=== PATIENT | male | born 1970 | race Caucasian/White ===

== ENCOUNTER 2022-11-18 01:42 | Day surgery (SDC) | payer OTHER, SELFPAY ==
[2022-11-07 15:51] VITALS: BMI 35.1
--- NOTE | 2022-11-17 14:19 | P.HP_ITS ---
History of Present Illness History of Present Illness Consent: Risks, benefits, and alternatives have been discussed and questions answered. Patient agrees to proceed with procedure. Chief complaint: GERD, neoplasm screening Narrative: Marilyn Granados is a 52 year old male referred for investigation of persistent reflux symptoms. He has been taking esomeprazole 20 mg daily. In the past he had been on prescription medication for a few years which she discontinued when symptoms improved after losing weight. He has never had an EGD. He is also referred for colon cancer screening because of his age. Review of Systems Review of Systems: All systems reviewed & are unremarkable except as noted in HPI and below [facility] Social History Social History Smoking packs per day: 1 Smoking cigarettes per day: 20.0 Years smoked: 15 Smoking pack-years: 15.00 Smoking status: Former smoker Tobacco type: smokeless tobacco Smokeless tobacco user: chewing tobacco Alcohol intake: current Drinks per week: 2 Alcohol use details: on occasion Substance use: never Substance use type: does not use Living arrangements: with family Spiritual care concerns: No Meds Home Medications and Allergies Home Medications Medication Instructions Recorded Confirmed Type esomeprazole magnesium 20 mg 20 mg PO DAILY 09/30/21 11/18/22 History capsule,delayed release (Nexium) rosuvastatin 40 mg tablet 40 mg PO DAILY 09/30/21 11/18/22 History Allergies Allergy/AdvReac Type Severity Reaction Status Date / Time No Known Allergies Allergy Verified 11/18/22 08:59 Exam Const: General: alert Orientation/consciousness: patient oriented x3 Resp: Auscultation: clear to auscultation bilaterally Cardio: Rhythm: regular rhythm GI: GI Palp: Yes Soft to palpation and No Tenderness to palpation present (GI) Neuro: General: patient oriented x3 Assessment and Plan Assessment and plan (1) GERD (gastroesophageal reflux disease): Code(s): K21.9 - Gastro-esophageal reflux disease without esophagitis Status: Acute Assessment and Plan: EGD with possible biopsy or dilatation or cautery. (2) Colon cancer screening: Code(s): Z12.11 - Encounter for screening for malignant neoplasm of colon Status: Acute Assessment and Plan: Colonoscopy with possible biopsy or polypectomy or cautery or injection of substances.
[2022-11-18 09:05] VITALS: BP 113/81; PULSE 69; RESP 18; TEMP 35.9; O2SAT 98
--- NOTE | 2022-11-18 09:12 | WPDANESEPPF ---
Anes - Initial Pre Proc Eval Procedure: Operation Date: 11/18/22 10:00 Proposed Procedures p Esophagogastroduodenoscopy & Screening Colonoscopy - Campos Callejas MD Date/Time: 11/18/22 09:12 Surgeon: Campos Callejas MD Pre Op Diagnosis: GERD, neoplasm screening Patient Data Age: 52 Gender: M Height: 1.78 m Weight: 112.3 kg Last Vital Signs Temp 96.7 F L 11/18/22 09:05 Pulse 69 11/18/22 09:05 Resp 18 11/18/22 09:05 BP 113/81 11/18/22 09:05 Pulse Ox 98 11/18/22 09:05 O2 Del Method Room Air 11/18/22 09:05 Allergies Allergy/AdvReac Type Severity Reaction Status Date / Time No Known Allergies Allergy Verified 11/18/22 08:59 Home Medications Medication Instructions Recorded Confirmed Type esomeprazole magnesium 20 mg 20 mg PO DAILY 09/30/21 11/18/22 History capsule,delayed release (Nexium) rosuvastatin 40 mg tablet 40 mg PO DAILY 09/30/21 11/18/22 History Patient hx anesthesia problems: none Family hx anesthesia problems: none Results Review: All pre-operative results and documents have been reviewed as part of the pre-operative evaluation. [facility] Social History Social History Smoking packs per day: 1 Smoking cigarettes per day: 20.0 Years smoked: 15 Smoking pack-years: 15.00 Smoking status: Former smoker Tobacco type: smokeless tobacco Smokeless tobacco user: chewing tobacco Alcohol intake: current Drinks per week: 2 Alcohol use details: on occasion Substance use: never Substance use type: does not use Living arrangements: with family Spiritual care concerns: No Anes - Eval Final PreProcedure Day of Procedure 11/18/22 09:12 Patient weight: obese Heart: regular rate and rhythm Lungs: clear to auscultation Airway: Mallampati scale class II Neurological: alert and oriented Last oral intake: >/= 8 hours ASA classification: II Emergent: no Anesthetic plan: proceed Anesthesia type and monitoring: general GIVS and standard monitoring Results Review: All pre-operative results and documents have been reviewed as part of the pre-operative evaluation. Informed Consent: The patient's anesthetic plan and its attendant risks and benefits were discussed with the patient/family/POA. Questions were solicited and answers provided to the satisfaction of the patient/family/POA.
[2022-11-18] MEDS: LACTATED RINGERS 1,000 ML 150 ML IV CONT (09:13)
--- NOTE | 2022-11-18 10:12 | SUR.OPER ---
EGD completed at 1006, Colonoscopy began at 1013
[2022-11-18 10:30] VITALS: BP 111/77; PULSE 64; RESP 22; O2SAT 94
[2022-11-18 10:40] VITALS: BP 112/75; PULSE 63; RESP 28; O2SAT 98
[2022-11-18 10:50] VITALS: BP 116/77; PULSE 70; RESP 26; O2SAT 98
== END 2022-11-18 11:00 | disposition home or self-care (01) ==
PROVIDERS: PCP Physician Assistant; Visit Provider Internal Medicine Gastroenterology
PROC: 0DJ08ZZ Inspection of Upper Intestinal Tract, Via Natural or Artificial Opening Endoscopic (ICD-10-PCS; CPT 43235; principal; 2022-11-18 10:00)
DX: Z12.11 Encounter for screening for malignant neoplasm of colon (principal); K63.5 Polyp of colon; K21.00 Gastro-esophageal reflux disease with esophagitis, without bleeding; F17.220 Nicotine dependence, chewing tobacco, uncomplicated; E66.9 Obesity, unspecified; Z68.35 Body mass index [BMI] 35.0-35.9, adult
CPT/HCPCS: 45385; 45380; 43239; 88305; J2704; J7120

== ENCOUNTER → 2023-04-07 13:57 | Outpatient (CLI) | payer OTHER, SELFPAY ==
--- NOTE | ~2023-04-07 | XR_ITS ---
EXAM: XR foot LT min 3V, XR foot RT min 3V DATE: 04/07/2023 14:58 HISTORY: Other specified abnormal immunological findings in . COMPARISON: None available. FINDINGS: Normal mineralization. No fracture or dislocation. No lytic or blastic lesion. Moderate ri ght and mild left MTP joint degenerative change. Degenerative change affecting the right lateral sesa moid bone at the first MTP. Mild bilateral tibiotalar degenerative change. Bilateral Achilles entheso jeremy. Small volume bilateral ankle effusions. No erosion or periosteal change. Soft tissues within n ormal limits. 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 Bilateral Achilles enthesopathy. Reviewed, dictated and finalized at location K. 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 Bilateral Achilles enthes opathy.
--- NOTE | ~2023-04-07 | XR_ITS ---
EXAM: XR hand LT 2V, XR hand RT 2V DATE: 04/07/2023 14:58 (accession [id number]), 04/07/2023 14:57 (accession [id number]) HISTORY: Other specified abnormal immunological findings in serum . COMPARISON: None available. FINDINGS: Normal mineralization. Old left ulnar styloid fracture No acute fracture or dislocation. N o lytic or blastic lesion. Mild scattered arthritic changes typical of osteoarthritis in the interpha langeal and MCP joints of the fingers and thumbs and the bilateral trapeziometacarpal, triscaphe, and radiocarpal joints. No erosion or periosteal change. Soft tissues within normal limits. IMPRESSION: Mild polyarticular osteoarthritis of the hands. Reviewed, dictated and finalized at location K. IMPRESSION: Mild polyarticular osteoarthritis of the hands.
--- NOTE | ~2023-04-07 | XR_ITS ---
EXAM: XR sacroiliac joints min 3V DATE: 04/07/2023 14:58 HISTORY: Pain in unspecified joint . COMPARISON: None available. FINDINGS: Normal mineralization. No fracture or dislocation. No lytic or blastic lesion. 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 Scattered pelvic and hip enthesopathy. Mild degenerative change at the bilateral hip joints and sacroiliac joints. No erosion or periosteal change. Soft tissues within norm al limits. 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 Reviewed, dictated and finalized at location K.
== END ==
PROVIDERS: PCP Physician Assistant; Visit Provider Physician Assistant
DX: R76.8 Other specified abnormal immunological findings in serum (principal); M16.0 Bilateral primary osteoarthritis of hip; M53.3 Sacrococcygeal disorders, not elsewhere classified; M19.071 Primary osteoarthritis, right ankle and foot; M19.072 Primary osteoarthritis, left ankle and foot; M77.31 Calcaneal spur, right foot; M77.32 Calcaneal spur, left foot; M19.041 Primary osteoarthritis, right hand; M19.042 Primary osteoarthritis, left hand
CPT/HCPCS: 72202; 73120; 73630